=== PATIENT | male | born 1970 | race African-American/Black ===

== ENCOUNTER 2021-02-19 08:10 | Emergency (ER) | payer OTHER ==
[~2021-02-19] VITALS: Ht 177.8 cm; Wt 150.0 kg
[2021-02-19 08:10] VITALS: BP 150/101
[2021-02-19] MEDS ORDERED: methylPREDNISolone SOD SUCC PF 125 MG/2 ML VIAL. IV ONE (08:30)
--- NOTE | 2021-02-19 08:35 | PHYS DOC ---
Past History Past Medical History: Asthma, COPD Adult General HPI HPI Patient is a 50-year-old male presenting via EMS for shortness of breath. This is an acute on chronic issue for patient. He has known asthma and COPD, has flareups of both often and has history of being intubated. Typically uses ox ygen continuously 3 L at home, reports with any type of exertion he has to increase his oxygen use to 5 L. He is originally from [place], traveling here to visit family. Unsure if recent weather change and/or change in environmental allergens triggered his shortness of breath but he reports last night having feelings of increased air hunger. He started using home breathing treatments and prescribed medications without significant relief. He was breathing poorly and was not getting any relief this morning when shortness of breath continued prompting him to call EMS for transport to our facility for evaluation. Review of Systems Review of Systems Fourteen body systems of review of systems have been reviewed. See HPI for pe rtinent positives and negative responses, other lopez all other systems are negative, non-pertinent or non-contributory Current Medications Current Medications Current Medications Medications (Trade) Dose Ordered Sig/Eliud Start Time Stop Time Status Last Admin Dose Admin Albuterol/ Ipratropium (Duoneb) 3 ml 1X ONCE 02/19/21 09:15 02/19/21 09:16 DC Aspirin (Aspirin Chewable) 162 mg 1X ONCE 02/19/21 09:00 02/19/21 09:08 DC 02/19/21 08:59 162 MG Methylprednisolone Sodium Succinate (SOLU-Medrol 125MG VIAL) 125 mg STK-MED ONCE 02/19/21 08:50 02/19/21 08:53 DC Physical Exam Physical Exam Constitutional: Well developed, well nourished extremely obese on [employer] machine speaking in few word sentences and suddenly but is non-toxic in appearance. HENT: Normocephalic, atraumatic, bilateral external ears normal, oropharynx moist, no oral exudates, nose normal. Eyes: PERRLA, EOMI, conjunctiva normal, no discharge. Neck: Normal range of motion, no tenderness, supple, no stridor. Cardiovascular: Heart rate tachycardic, sinus rhythm, no murmurs rubs or gallops Lungs & Thorax: Decreased breath sounds globally due to body habitus, minimal rhonchi heard in bibasilar bases, poor air movement globally Abdomen: Bowel sounds normal, soft and obese, no tenderness, no masses, no puls atile masses. Nonsurgical abdomen, no peritoneal signs Skin: Warm, dry, no erythema, no rash. Back: No tenderness, no CVA tenderness. Extremities: No tenderness, no cyanosis, no clubbing, ROM intact, no edema. Prior deformity present to right hand Neurologic: Alert and oriented X 3, grossly normal motor & sensory function, no focal deficits noted. Psychologic: Affect normal, judgement normal, mood normal. Current Patient Data Vital Signs Vital Signs Date Time Temp Pulse Resp B/P (MAP) Pulse Ox O2 Delivery O2 Flow Rate FiO2 02/19/21 08:10 97.5 26 150/101 99 Room Air 02/19/21 09:40 3.0 Vital Signs Date Time Temp Pulse Resp B/P (MAP) Pulse Ox O2 Delivery O2 Flow Rate FiO2 02/19/21 09:40 98 home cpap 3.0 02/19/21 08:10 97.5 26 150/101 Lab Results Current Medications Medications (Trade) Dose Ordered Sig/Eliud Route PRN Reason Start Time Stop Time Status Last Admin Dose Admin Methylprednisolone Sodium Succinate (SOLU-Medrol 125MG VIAL) 125 mg 1X ONCE IV 02/19/21 08:30 02/19/21 08:53 DC Aspirin (Aspirin Chewable) 162 mg 1X ONCE PO 02/19/21 09:00 02/19/21 09:08 DC 02/19/21 08:59 Methylprednisolone Sodium Succinate (SOLU-Medrol 125MG VIAL) 60 mg 1X ONCE IV 02/19/21 09:00 02/19/21 09:08 DC 02/19/21 08:59 Methylprednisolone Sodium Succinate (SOLU-Medrol 125MG VIAL) 125 mg STK-MED ONCE .ROUTE 02/19/21 08:50 02/19/21 08:53 DC Albuterol/ Ipratropium (Duoneb) 3 ml 1X ONCE NEB 02/19/21 09:15 02/19/21 09:16 DC 02/19/21 09:40 Doxycycline Hyclate (Vibra-Tab) 100 mg 1X ONCE PO 02/19/21 09:45 02/19/21 09:46 DC EKG EKG EKG ordered and interpreted by myself at 0849 hrs. as sinus tachycardia at 101 bpm, QTC 483 otherwise unremarkable intervals, no axis deviation, no obvious ischemic findings, no STEMI Radiology/Procedures Radiology/Procedures Single view chest dated 02/19/2021 8:57 AM: COMPARISON: None Clinical Indication: Shortness of breath. Findings: Single upright portable exam of the chest was performed. Heart and mediastinal contours within normal limits. There is patchy increased density at the bilateral lung bases. No definite pleural effusion. No pneumothorax. IMPRESSION: 1. Patchy bibasilar opacities, atelectasis versus early pneumonia. Electronically signed by: Jacob Ingram MD (02/19/2021 8:58 AM) [id number] Heart Score C/O Chest Pain: No HEART Score for Chest Pain: HEART Score for Chest Pain Response (Comments) Value History Moderately Suspicious 1 ECG Normal 0 Age >45 - < 65 1 Risk Factors No Risk Factors 0 Troponin < Normal Limit 0 Total 2 Risk Factors: Risk Factors: DM, Current or recent (<one month) smoker, HTN, HLP, family history of CAD, obesity. Risk Scores: Risk Factors: DM, Current or recent (<one month) smoker, HTN, HLP, family history of CAD, obesity. Course & Med Decision Making Course & Med Decision Making ABCs unremarkable. I disclosed entirety of ER findings and discussed most likely diagnosis of COPD exacerbation versus CO2 retention and a chronic respiratory failure patient. Patient has everything he needs, reports he is here only for steroids only as he is out of his comfort zone and new state visiting family, also admits that he has not been on his trilogy machine as much as he should likely contributing to shortness of breath and acute on chronic retention of CO2. Patient condition improved with ER intervention, I discussed potential need for further diagnostic work-up in ER and potential for hospital admission but as mention, patient has trilogy machine, all required inhalers and maintenance medications with him during his visit here, and is extremely knowledgeable about his respiratory problems. As such, joint decision made to discharge home with steroid burst and antibiotics, I did disclose side effects of doxycycline which she has taken in the past without issues. I stressed need for close outpatient follow-up to review today's ER visit whenever he gets back to [place] with his primary care physician and reflow operator. Strict return precautions were also discussed at length with good understanding by patient. Patient voiced understanding and agreement with the plan. Patient knows to come back for repeat evaluation if concerning signs or symptoms present prior to outpatient follow-up. Hemodynamically stable, ambulatory and well-appearing at time of disposition. Critical Care Time This patient required critical care. Due to the fact that the patient required a significant amount of one on one physician - patient contact time, ordering and review of studies, arranging urgent treatment with development of a management plan, evaluation of patients response to treatment with frequent reassessments, and discussions with other providers this patient required 30 minutes of critical care time. Critical care time was indicated due to the inherent in stability and/or potential for instability in this patient. The critical care time that is allocated to this patient is above and beyond any time spent on any other billable procedures performed on this patient. Dragon Disclaimer Dragon Disclaimer This electronic medical record was generated, in whole or in part, using a voice recognition dictation system. Departure Departure: Impression: Primary Impression: COPD exacerbation Disposition: HOME / SELF CARE / HOMELESS Condition: IMPROVED Referrals: PCP,UNKNOWN (PCP) Patient Instructions: Chronic Obstructive Pulmonary Disease Exacerbation Additional Instructions: You were seen for a COPD exacerbation. Please continue your current regimen for symptom control and if prescribed any medications during your ED visit today, take them as prescribed until completion or your primary doctor changes your medications. It will be important that you follow up with your primary doctor/ reflow operator after this ED visit. Return to the ED if you develop worsening cough, shortness of breath, fever > 101, chest pain, or any other new or concerning symptoms. Scripts Prednisone (PREDNISONE) 20 Mg Tablet 40 MG PO DAILY for bronchitis for 4 Days, #8 TAB Prov: GWYN PRABHAKAR DO 02/19/21 Doxycycline Hyclate (DOXYCYCLINE HYCLATE) 100 Mg Tablet 1 TAB PO BID for COPD EXACERBATION, #13 TAB Prov: GWYN PRABHAKAR DO 02/19/21 GWYN PRABHAKAR DO Feb 19, 2021 08:35
[2021-02-19] MEDS ORDERED: methylPREDNISolone SOD SUCC PF 125 MG/2 ML VIAL. ONE (08:50)
[2021-02-19] MEDS: ASPIRIN CHEWABLE 81 MG TABLET. PO ONE (08:59)
[2021-02-19] MEDS: methylPREDNISolone SOD SUCC PF 125 MG/2 ML VIAL. IV ONE (08:59)
--- NOTE | 2021-02-19 09:00 | RAD ---
Single view chest dated 02/19/2021 8:57 AM: COMPARISON: None Clinical Indication: Shortness of breath. Findings: Single upright portable exam of the chest was performed. Heart and mediastinal contours within normal limits. There is patchy increased density at the bilateral lung bases. No definite pleural effusion. No pneumothorax. IMPRESSION: 1. Patchy bibasilar opacities, atelectasis versus early pneumonia. Electronically signed by: Jacob Ingram MD (02/19/2021 8:58 AM) [id number]
[2021-02-19 09:04] LABS: BASO # 0.1 x10^3/uL (0.0-0.2); BASO % 1 % (0-3); EOS # 0.9 x10^3/uL (0.0-0.7); EOS % 13 % (0-3); HEMATOCRIT 39.6 % (39.0-53.0); HEMOGLOBIN 12.8 g/dL (13.0-17.5); LYMPH # 1.5 x10^3/uL (1.0-4.8); LYMPH % 21 % (24-48); MEAN CORPUSCULAR HEMOGLOBIN 27 pg (25-35); MEAN CORPUSCULAR HGB CONC 32 g/dL (31-37); MEAN CORPUSCULAR VOLUME 84 fL (79-100); MONO # 0.6 x10^3/uL (0.0-1.1); MONO % 8 % (0-9); NEUT # 4.3 x10^3uL (1.8-7.7); NEUT % 58 % (31-73); PLATELET COUNT 216 x10^3/uL (140-400); RED BLOOD COUNT 4.72 x10^6/uL (4.30-5.70); RED CELL DISTRIBUTION WIDTH 15.5 % (11.5-14.5); WHITE BLOOD COUNT 7.5 x10^3/uL (4.0-11.0)
[2021-02-19 09:07] LABS: CALCIUM 8.9 mg/dL (8.5-10.1); CREATININE 1.2 mg/dL (0.7-1.3); GFR 77.5; POTASSIUM 3.8 mmol/L (3.5-5.1)
[2021-02-19] MEDS ORDERED: PRED20TA PO (09:32)
[2021-02-19] MEDS ORDERED: DOXY100T PO (09:32)
[2021-02-19] MEDS: IPRATRPIUM/ALBUTEROL 0.5/2.5MG 3 ML NEBU. NEB ONE (09:40)
[2021-02-19] MEDS ORDERED: DOXYCYCLINE HYCLATE 100 MG TABLET PO ONE (09:45)
--- NOTE | 2021-02-19 21:53 | EKG ---
[address] [address] Test Date: 2021-02-19 Test Time: 08:43:24 Pat Name: CECY MARRERO Department: Room: Gender: M Security Attendant: : 1970 Requested By: GWYN PRABHAKAR Order Number: [id number] Reading MD: Measurements Intervals [place] Rate: 101 P: 54 IN: 140 QRS: 69 QRSD: 92 T: 63 QT: 372 QTc: 483 Interpretive Statements SINUS TACHYCARDIA R-S TRANSITION ZONE IN V LEADS DISPLACED TO THE LEFT T ABNORMALITY IN ANTERIOR LEADS ABNORMAL ECG RI6.02 No previous ECG available for comparison
== END 2021-02-19 10:00 | disposition home or self-care (01) ==
LOC: ER 08:10
DX: J44.1 Chronic obstructive pulmonary disease with (acute) exacerbation (principal)
CPT/HCPCS: 36415; 71045; 80048; 82803; 83880; 84484; 85025; 93005; 94640; 96374; 99285; J2930